=== PATIENT | female | born 1960 | race Caucasian/White ===

== ENCOUNTER → 2018-03-21 09:45 | Outpatient (CLI) | payer OTHER, SELFPAY ==
--- NOTE | 2018-03-21 | DI.MG.S_ITS ---
BILATERAL DIGITAL SCREENING MAMMOGRAM 3D/2D WITH CAD: 03/21/2018 CLINICAL: Routine screening. Comparison is made to exams dated: 02/27/2017 mammogram, 05/26/2015 mammogram, and 05/25/2014 mammogram - [facility]. The tissue of both breasts is heterogeneously dense. This may lower the sensitivity of mammography. Current study was also evaluated with a Computer Aided Detection (CAD) system. There is an asymmetry in the right breast middle depth outer region seen on the craniocaudal view only. No other significant masses, calcifications, or other findings are seen in either breast. IMPRESSION: INCOMPLETE: NEEDS ADDITIONAL IMAGING EVALUATION The asymmetry in the right breast is indeterminate. Additional views with possible ultrasound are recommended. This exam was interpreted at Station ID: [id number]. NOTE: For mammograms, a report in lay terms will be sent to the patient. Approximately 15% of breast malignancies will not be visualized mammographically. In the management of a palpable breast mass, a negative mammogram must not discourage biopsy of a clinically suspicious lesion. Electronically Signed By: Quentin read/shawn:03/22/2018 02:51:54 letter sent: Additional Imaging Needed ACR BI-RADS Category 0: Incomplete 3340F
== END ==
PROVIDERS: PCP Internal Medicine; Visit Provider Internal Medicine
DX: Z12.31 Encounter for screening mammogram for malignant neoplasm of breast (principal)
CPT/HCPCS: 77063; 77067

== ENCOUNTER → 2018-04-02 08:50 | Outpatient (CLI) | payer OTHER, SELFPAY ==
--- NOTE | 2018-04-02 | DI.MG.S_ITS ---
UNILATERAL RIGHT DIGITAL DIAGNOSTIC MAMMOGRAM 3D/2D WITH ADDITIONAL VIEWS: 04/02/2018 CLINICAL: Additional evaluation requested from prior study. Comparison is made to exams dated: 03/21/2018 mammogram, 02/27/2017 mammogram, and 05/26/2015 mammogram - [facility]. The tissue of right breast is heterogeneously dense. This may lower the sensitivity of mammography. The asymmetry in the right breast middle depth lateral region seen on the craniocaudal view only is not seen in additional views. . No other significant masses or calcifications are seen in the breast. IMPRESSION: The asymmetry in the right breast seen on the screening mammogram likely respresents superimposed fibroglandular tissue and is benign. There is no mammographic evidence of malignancy. A 1 year screening mammogram is recommended. This exam was interpreted at Station ID: [id number]. NOTE: For mammograms, a report in lay terms will be sent to the patient. Approximately 15% of breast malignancies will not be visualized mammographically. In the management of a palpable breast mass, a negative mammogram must not discourage biopsy of a clinically suspicious lesion. Electronically Signed By: Abigail willis/:04/02/2018 09:19:16 letter sent: Normal Exam ACR BI-RADS Category 2: Benign Finding(s) 3342F
== END ==
PROVIDERS: PCP Internal Medicine; Visit Provider Internal Medicine
DX: R92.8 Other abnormal and inconclusive findings on diagnostic imaging of breast (principal)
CPT/HCPCS: 77065; G0279

== ENCOUNTER 2019-03-05 13:30 | Day surgery (SDC) | payer OTHER, SELFPAY ==
[2019-03-05] VITALS (9 sets, daily range): BP systolic 104–147; BP diastolic 69–88; PULSE 67–76; RESP 9–18; TEMP 36.1–36.6; O2SAT 98–100; BMI 18.9
[2019-03-05] MEDS: SODIUM CHLORIDE 0.9% 1,000 ML 42 ML IV (14:08)
--- NOTE | 2019-03-05 15:29 | PM.OP.ENDO ---
Operative Date/Time/Diagnoses Date of procedure: 03/05/19 Time of procedure: 15:29 Pre-op diagnosis: See indication and findings Procedure & Clinicians Study performed: Colonoscopy Same procedure as scheduled: Yes Indications: History of colon polyps Surgeon: Angel Luis Hurtado Procedure Notes Procedure in detail: After informed consent was obtained the patient was placed in left lateral decubitus position. The video colonoscope was into the rectum and slowly advanced to the cecum. On slow withdrawal mucosa was carefully examined. Preparation was only good to fair. Extensive washing was less than complete. Scope was removed. The patient tolerated procedure well. Blood loss none Complications none Sedation Total sedation time 20 minutes Versed 5 mg fentanyl 100 micro g IV titration Findings 1. Sigmoid diverticulosis 2. Otherwise negative colonoscopy to cecum Marti need follow-up colonoscopy in 5 years.
[2019-03-05] MEDS: MIDAZOLAM 5 MG/5 ML VIAL IV (15:30)
[2019-03-05] MEDS: fentaNYL 250 MCG/5 ML INJ IV (15:31)
--- NOTE | 2019-03-05 15:31 | PM.HP.1 ---
History of Present Illness History of Present Illness Date Patient Seen: 03/05/19 Time Patient Seen: 15:31 Chief complaint: [id number] Narrative: History of colon polyps Patient History Social History household members: spouse Family & Social History Social History: household members spouse Meds Home Medications and Allergies Allergies Allergy/AdvReac Type Severity Reaction Status Date / Time No Known Drug Allergies Allergy Verified 03/05/19 13:52 Exam Vital Signs (past 8 hours): - 03/05/19 13:49 Temperature 97 F L Pulse Rate 76 Respiratory Rate 16 Blood Pressure 147/85 H Pulse Oximetry 100 Oxygen Delivery Method Room Air Narrative Exam Narrative: Oropharynx free of lesions Chest clear to auscultation percussion Assessment & Plan Assessment & Plan narrative: History of colon polyps need for follow-up colonoscopy. Risks, benefits, alternatives have been explained.
--- NOTE | 2019-03-05 15:45 | SUR.PHASEI ---
Patient very talkative. Passing flatus. Concerned if insurance will cover procedure if no polyps found. Abdomen soft. VSS. Will continue to monitor.
== END 2019-03-05 16:45 | disposition home or self-care (01) ==
LOC: ENDO 13:34
PROVIDERS: PCP Internal Medicine; Visit Provider Internal Medicine Gastroenterology
PROC: 0DJD8ZZ Inspection of Lower Intestinal Tract, Via Natural or Artificial Opening Endoscopic (ICD-10-PCS; CPT 45378; principal; 2019-03-05 14:30)
DX: Z86.010 Personal history of colon polyps (principal); K57.30 Diverticulosis of large intestine without perforation or abscess without bleeding
CPT/HCPCS: 45378; J2250; J3010

== ENCOUNTER → 2019-03-24 11:07 | Outpatient (CLI) | payer OTHER, SELFPAY ==
--- NOTE | 2019-03-24 | DI.MG.S_ITS ---
BILATERAL DIGITAL SCREENING MAMMOGRAM 3D/2D WITH CAD: 03/24/2019 CLINICAL: Routine screening. Comparison is made to exams dated: 03/21/2018 mammogram, 02/27/2017 mammogram, 05/26/2015 mammogram, and 04/02/2018 mammogram - [facility]. The tissue of both breasts is heterogeneously dense. This may lower the sensitivity of mammography. Current study was also evaluated with a Computer Aided Detection (CAD) system. No significant masses, calcifications, or other findings are seen in either breast. There has been no significant interval change. IMPRESSION: NEGATIVE There is no mammographic evidence of malignancy. A 1 year screening mammogram is recommended. This exam was interpreted at Station ID: [id number]. NOTE: For mammograms, a report in lay terms will be sent to the patient. Approximately 15% of breast malignancies will not be visualized mammographically. In the management of a palpable breast mass, a negative mammogram must not discourage biopsy of a clinically suspicious lesion. Electronically Signed By: Quentin read/shawn:03/24/2019 17:14:49 letter sent: Normal Exam ACR BI-RADS Category 1: Negative 3341F
== END ==
PROVIDERS: PCP Internal Medicine; Visit Provider Internal Medicine
DX: Z12.31 Encounter for screening mammogram for malignant neoplasm of breast (principal)
CPT/HCPCS: 77063; 77067

== ENCOUNTER → 2019-06-20 12:14 | Outpatient (CLI) | payer OTHER, SELFPAY ==
--- NOTE | 2019-06-20 | DI.RAD.S_ITS ---
PROCEDURE: XR HIP W PEL IF DONE JOB 3TO4V INDICATIONS: Pain in right hip TECHNIQUE: AP pelvis with lateral view(s) of the bilateral hip(s). COMPARISON: None. FINDINGS: Bones: No fractures or dislocations. Pelvic ring appears intact. Right worse than left bilateral hip joint osteoarthritis is seen with joint space narrowing, subchondral sclerosis and small marginal osteophyte formation. No suspicious bony lesions. No evidence of avascular necrosis of femoral heads. Degenerative disc disease in visualized lower lumbar spine is seen. Soft tissues: The visualized bowel gas pattern is normal. No suspicious soft tissue calcifications. IMPRESSION: Right worse than left bilateral hip joint osteoarthritis. No fracture or dislocation. No evidence of avascular necrosis of femoral heads. Dictated by: Jacques Espinoza M.D. on 06/20/2019 at 13:07 Approved by: Jacques Espinoza M.D. on 06/20/2019 at 13:08
== END ==
PROVIDERS: PCP Internal Medicine; Visit Provider Internal Medicine
DX: M25.551 Pain in right hip (principal); M16.0 Bilateral primary osteoarthritis of hip
CPT/HCPCS: 73522

== ENCOUNTER → 2020-04-22 15:04 | Outpatient (ROUT) | payer OTHER, SELFPAY ==
[2020-04-22 16:13] LABS: Alanine Aminotransferase 34 IU/L (<35); Albumin Globulin Ratio 1.3 (1.0-2.8); Alkaline Phosphatase 72 U/L (38-126); Aspartate Aminotransferase 49 IU/L (14-36); BUN Creatinine Ratio 9.1 (6-22); Bilirubin Total 0.4 mg/dL (0.2-1.3); Blood Urea Nitrogen 7 mg/dL (7-17); Calcium 9.1 mg/dL (8.4-10.2); Carbon Dioxide 27 mmol/L (22-32); Chloride 104 mmol/L (98-107); Cholesterol 164 mg/dL (140-199); Estimated Glomerular Filt Rate > 60.0 mL/min (>60); Glucose 85 mg/dL (80-110); HDL Cholesterol 77 mg/dL (40-60); HEMOLYSIS < 15 (0-50); LDL Cholesterol Calculated 75 mg/dL (<100); Potassium 4.4 mmol/L (3.4-5.1); Sodium 135 mmol/L (137-145); Triglycerides 58 mg/dL (35-150)
== END ==
PROVIDERS: PCP Internal Medicine; Visit Provider Internal Medicine
DX: E78.00 Pure hypercholesterolemia, unspecified (principal)
CPT/HCPCS: 80053; 80061

== ENCOUNTER → 2020-05-07 12:23 | Outpatient (CLI) | payer OTHER, SELFPAY ==
--- NOTE | 2020-05-07 | DI.MG.S_ITS ---
BILATERAL DIGITAL SCREENING MAMMOGRAM 3D/2D WITH CAD: 05/07/2020 CLINICAL: Routine screening. Comparison is made to exams dated: 03/24/2019 mammogram, 03/21/2018 mammogram, and 02/27/2017 mammogram - [facility]. The tissue of both breasts is heterogeneously dense. This may lower the sensitivity of mammography. Current study was also evaluated with a Computer Aided Detection (CAD) system. No significant masses, calcifications, or other findings are seen in either breast. There has been no significant interval change. IMPRESSION: NEGATIVE There is no mammographic evidence of malignancy. A 1 year screening mammogram is recommended. This exam was interpreted at Station ID: [id number]. NOTE: For mammograms, a report in lay terms will be sent to the patient. Approximately 15% of breast malignancies will not be visualized mammographically. In the management of a palpable breast mass, a negative mammogram must not discourage biopsy of a clinically suspicious lesion. Electronically Signed By: Abigail willis/shawn:05/11/2020 09:45:01 letter sent: Normal Exam ACR BI-RADS Category 1: Negative 3341F
== END ==
PROVIDERS: PCP Internal Medicine; Referring Provider Internal Medicine; Visit Provider Internal Medicine
DX: Z12.31 Encounter for screening mammogram for malignant neoplasm of breast (principal)
CPT/HCPCS: 77063; 77067